=== PATIENT | male | born 1975 | race African-American/Black ===

== ENCOUNTER 2019-07-03 17:46 | Emergency (ER) | payer MEDICARE, MEDICAID ==
[2019-07-03] MEDS ORDERED: Ketorolac Tromethamine 60 MG/2 ML VIAL ONE (18:46)
--- NOTE | 2019-07-03 19:27 | CT ---
CERVICAL SPINE CT SCAN WITHOUT IV CONTRAST: 07/03/19 HISTORY: Neck pain following an injury. COMPARISON: 01/09/15. FINDINGS: No evidence for acute fracture or dislocation. IMPRESSION: Unremarkable cervical spine CT. No fracture or dislocation. POS: RRE
--- NOTE | 2019-07-03 19:28 | RAD ---
RIGHT ELBOW FOUR VIEWS: 07/03/19 HISTORY: Right elbow injury following trauma with pain. FINDINGS: Mild enthesophytic changes of the ulna olecranon. No fracture or dislocation. IMPRESSION: Mild degenerative changes without fracture or dislocation. POS: RRE
== END 2019-07-03 19:54 | disposition home or self-care (01) ==
LOC: NAV ERS 17:46
DX: S13.4XXA Sprain of ligaments of cervical spine, initial encounter (principal); S33.5XXA Sprain of ligaments of lumbar spine, initial encounter; S50.01XA Contusion of right elbow, initial encounter; I10 Essential (primary) hypertension; Z79.899 Other long term (current) drug therapy; V49.9XXA Car occupant (driver) (passenger) injured in unspecified traffic accident, initial encounter
CPT/HCPCS: 72125; 96372; J1885

== ENCOUNTER 2019-07-18 02:36 | Emergency (ER) | payer MEDICARE, MEDICAID ==
[2019-07-18] MEDS ORDERED: predniSONE 20 MG TAB ONE (03:33)
[2019-07-18] MEDS ORDERED: Acetaminophen 500 MG TAB ONE (03:33)
== END 2019-07-18 03:46 | disposition home or self-care (01) ==
LOC: NAV ERS 02:36
DX: J02.9 Acute pharyngitis, unspecified (principal); I10 Essential (primary) hypertension; F20.9 Schizophrenia, unspecified; Z79.899 Other long term (current) drug therapy
CPT/HCPCS: 87081; 87430; 87804; 99283; J7512